=== PATIENT | male | born 2000 | race Caucasian/White ===

== ENCOUNTER 2023-02-21 17:16 | Emergency (ER) | payer OTHER ==
[~2023-02-21] VITALS: Ht 165.1 cm; Wt 61.2 kg
[2023-02-21] MEDS ORDERED: ULTRAM 50MG50 MG PO (22:04)
[2023-02-21] MEDS ORDERED: CIPRO500 MG PO (22:04)
[2023-02-21] MEDS ORDERED: DOXYCYCLINE HY100 MG PO (22:04)
[2023-02-21 22:11] VITALS: BP 121/74; PULSE 65; RESP 18; TEMP 98.6; O2SAT 99
== END 2023-02-21 22:15 | disposition home or self-care (01) ==
LOC: ER 18:00
DX: N50.819 Testicular pain, unspecified (principal); N43.3 Hydrocele, unspecified; N34.2 Other urethritis
CPT/HCPCS: 76870; 93976; 99284